=== PATIENT | male | born 1960 | race Caucasian/White ===

== ENCOUNTER 2018-06-25 08:59 | Outpatient (REF) | payer MEDICAID, SELFPAY ==
[2018-06-25 13:08] LABS: ALT 21 U/L (12-78); AST 15 U/L (15-37); Albumin 4.1 g/dL (3.4-5.0); Alkaline Phosphatase 62 U/L (46-116); Anion Gap 4.8 mmol/L (3-11); BUN 9 mg/dL (7-18); Bilirubin, Total 0.3 mg/dL (0.2-1.0); CO2 33.2 mmol/L (21.0-32.0); CREATININE 1.11 mg/dL (0.70-1.30); Calcium 9.7 mg/dL (8.5-10.1); Chloride 102 mmol/L (98-107); Cholesterol 193 mg/dL (50-200); Glucose 100 mg/dL (70-100); HDL Cholesterol 40 mg/dL (40-60); LDL CHOLESTEROL 128 mg/dL (<100); Potassium 4.7 mmol/L (3.5-5.1); Sodium 140 mmol/L (136-145); Total Protein 7.3 g/dL (6.4-8.2); Triglyceride 204 mg/dL (30-150)
[2018-06-25 13:14] LABS: Lithium 0.78 mmol/L (0.60-1.20)
== END 2018-06-25 09:19 ==
LOC: NCHCN 08:59
PROVIDERS: PCP Family Medicine; Visit Provider Family Medicine
DX: F31.9 Bipolar disorder, unspecified (principal); E78.5 Hyperlipidemia, unspecified; E11.9 Type 2 diabetes mellitus without complications; Z79.4 Long term (current) use of insulin; Z51.81 Encounter for therapeutic drug level monitoring; Z79.899 Other long term (current) drug therapy
CPT/HCPCS: 80053; 80061; 83721; 80178; 84443

== ENCOUNTER 2022-07-14 10:24 | Day surgery (SDC) | payer MEDICAID, SELFPAY | END 2022-07-14 10:25 | disposition home or self-care (01) | LOC: SUR 10:25 | PROVIDERS: PCP Family Medicine; Visit Provider Ophthalmology | DX: H25.11 Age-related nuclear cataract, right eye (principal); Z53.8 Procedure and treatment not carried out for other reasons ==

== ENCOUNTER 2022-10-31 10:48 | Day surgery (SDC) | payer MEDICAID, SELFPAY ==
[2022-10-31] VITALS (8 sets, daily range): BP systolic 89–136; BP diastolic 39–90; PULSE 64–89; RESP 11–22; TEMP 36.2–36.8; O2SAT 93–98; BMI 36.5
[2022-10-31] MEDS: Tropicam./Phenyleph. (1/2.5%) 5 ML BTL OD ×2 (11:48→11:55)
--- NOTE | 2022-10-31 11:55 | W.ANESPRE ---
General Info Date of Service Date Performed: 10/31/22 Height: 5 ft 8 in Weight: 108.9 kg Body Mass Index (BMI): 36.5 Surgical Procedure: Operation Date: 10/31/22 13:10 Proposed Procedure Side Surgeon p Cataract Extraction with IOL Implant Right Armond Grayson MD Meds Allergies and Home Medications Allergies Allergy/AdvReac Type Severity Reaction Status Date / Time No Known Allergies Allergy Unverified 10/30/22 11:27 Home Medication Medication Instructions Recorded aspirin 81 mg chewable tablet 81 mg PO DAILY 02/16/13 calcium cmb no.1-vit [id number]-B12 1 ea PO DAILY 02/16/13 120 mg-1,000 unit-10 mg tablet (Vitamin D3 (with calcium cit-phos)) clonazepam 0.5 mg tablet 1 mg PO TID 02/16/13 lithium carbonate 450 mg 450 mg PO HS 02/16/13 tablet,extended release olanzapine 20 mg tablet (Zyprexa) 20 mg PO HS 02/16/13 atorvastatin 40 mg tablet 40 mg PO DAILY 07/10/22 cetirizine 10 mg tablet (All Day 10 mg PO DAILY 07/10/22 Allergy (cetirizine)) cholecalciferol (vitamin D3) 25 25 mcg PO DAILY 07/10/22 mcg (1,000 unit) tablet (Vitamin D3) doxepin 25 mg capsule 25 mg PO HS 07/10/22 empagliflozin 10 mg tablet 10 mg PO DAILY 07/10/22 (Jardiance) folic acid 1 mg tablet 1 mg PO DAILY 07/10/22 lithium carbonate 150 mg capsule 150 mg PO HS 07/10/22 melatonin 3 mg tablet 3 mg PO HS PRN 07/10/22 metformin 500 mg tablet,extended 500 mg PO DAILY 07/10/22 release 24 hr mometasone 0.1 % topical cream 1 applic topical DIRECTED 07/10/22 nicotine 21 mg/24 hr daily 21 mg transdermal DIRECTED 07/10/22 transdermal patch propranolol 60 mg capsule,24 60 mg PO DAILY 07/10/22 hr,extended release trazodone 100 mg tablet 100 mg PO HS 07/10/22 hydroxyzine pamoate 50 mg capsule 50 mg PO HS 07/14/22 mometasone 0.1 % topical cream 1 applic topical BID 07/14/22 mupirocin 2 % topical ointment 1 applic topical BID PRN 07/14/22 olanzapine 20 mg tablet (Zyprexa) 20 mg PO HS 07/14/22 Current Visit Medications: Current Medications Generic Name Dose Route Start Last Admin Trade Name Luis Fernando PRN Reason Stop Dose Admin Acetaminophen 1,000 mg 10/31/22 06:00 Acetaminophen 500 Mg Tab PO 11/30/22 05:59 Q4H PRN PRN Balanced Salt Solution 500 ml 10/31/22 06:00 Balanced Salt Soln.-Plus 500 Ml Bag OP 11/30/22 05:59 DIRECTED [facility] Ringer's Solution 1,000 mls @ 80 mls/hr 10/31/22 06:00 IV 10/31/22 23:59 INFUSION [facility] IV Miscellaneous Supplies 1 each 10/31/22 06:00 Iv Access IV 10/31/22 23:59 DIRECTED [facility] Miscellaneous Medication 0 ml 10/31/22 06:00 Prednisolone 1%, Moxifloxacin 0.5%, Nepafenac 0.1% 5ml Btl OD 11/30/22 05:59 DIRECTED [facility] Miscellaneous Medication 0 ml 10/31/22 06:00 Tropicam./Phenyleph. (1/2.5%) 5 Ml Btl OD 11/30/22 05:59 DIRECTED [facility] Sodium Chloride 0 ml 10/31/22 06:00 Normal Saline Flush 10 Ml Syr IV 10/31/22 23:59 PRN PRN Sodium Chloride 0 ml 10/31/22 06:00 Normal Saline 10 Ml Vial IJ 10/31/22 23:59 DIRECTED PRN Sterile Water 0 ml 10/31/22 06:00 Water,Injection,Sterile 10 Ml Vial IJ 10/31/22 23:59 DIRECTED PRN Tetracaine HCl 0 ml 10/31/22 06:00 Tetracaine 0.5% 4 Ml Btl OD 11/30/22 05:59 DIRECTED [facility] PFS Active Problems Active Problems: Problem Status Onset Code Posterior subcapsular age-related cataract, right eye H25.041 Cortical cataract of right eye H26.9 Nuclear sclerotic cataract of right eye H25.11 Medical History Medical History Acute kidney injury Anxiety Bipolar disorder Cataract Cerebral ischemia Chronic cholecystitis CVA (cerebral vascular accident) Summer 2020 Depressive disorder Lightheadedness [place] use Microalbuminuria Persistent insomnia Pruritus of skin Right upper quadrant pain Smoker Type 2 diabetes mellitus Medical History Comments:: Per case provider he does not have rash Pt. is currently in boot (R) due to ankle surgery Surgical History Surgical History History of carotid endarterectomy [place] [facility] [place] Tobacco Smoking/Tobacco Use Status: Current every day Tobacco Type: cigarettes Alcohol Alcohol Intake: never Substance Use Substance use: Never Substance use type: does not use Vital Signs and Lab Results Vital Signs Most Recent Vital Signs in EMR: Most Recent Vital Signs Temp Pulse Resp BP Pulse Ox 36.8 C 88 16 136/83 95 10/31/22 11:15 10/31/22 11:15 10/31/22 11:15 10/31/22 11:15 10/31/22 11:15 Lab Results Blood Type / Crossmatch: No Data to Display Complete Blood Count: No Data to Display Complete Metabolic Panel: No Data to Display Liver Function Panel: No Data to Display Coagulation Panel: No Data to Display Cardiac Panel: No Data to Display Arterial Blood Gas: No Data to Display Venous Blood Gas: No Data to Display Pancreas Panel: No Data to Display Thyroid Panel: No Data to Display Infectious Disease: No Data to Display Blood Cultures: No Data to Display Toxicology Panel: No Data to Display Imaging and Studies Imaging and Studies Study information below may be from another EMR and interpreted by another provider. Please see original notes in EMR for more complete details. Other Study Summary:: 12/28/20 echo. EF 71% no hemodynamically significant valvular disease. 02/07/22. Carotid duplex. Right ICA<15%. Left 16-49% stenosis Right CEA 01/04/21 p right hemisphere stroke. Vascular surgery at [facility] [place]. NOTE 02/07/22. No changes. For follow up 1 year Anesthesia Assessment and Plan Anesthesia History Personal History: No History of Anesthesia Complications Family History: Family History Unknown Exercise Tolerance Exercise Tolerance: Metabolic Equivalents>4 Pertinent Negatives Pertinent Negatives: No Symptoms of GERD Cardiac & Pulmonary Exam Cardiac Exam: Normal S1/S2 Heart Sounds Pulmonary Exam: Clear Bilateral Breath Sounds Implantable Cardiac Device Does patient have a Pacemaker or an ICD?: No Airway Exam Known Difficult Airway: No Mallampati Class: 3 Mouth Opening: Normal (> 3cm) Thyromental Distance: Greater than 3 cm Neck Range of Motion: Full ROM Neck Circumference: Thick Teeth Condition: Edentulous ASA Classification ASA Score: ASA 3 Emergency Case?: No NPO Status NPO Status: NPO Clears >2 hours, Solids >8 hours Anesthesia Plan Resuscitation Status: Full Code Anesthesia Technique: General Anesthesia Airway Planned: LMA Monitors Used: Standard Monitors Preoperative Comments:: See all notes concerning cardiovascular. Stable. Surgeon [place] due to bipolar and cognitive issues and possible lengthy surgery would do best under GA. pt understands
[2022-10-31] MEDS: Lactated Ringers 1,000 ML 80 ML IV (12:03)
[2022-10-31] MEDS: Balanced Salt Soln.-PLUS 500 ML BAG OP (12:55)
[2022-10-31] MEDS: Tetracaine 0.5% 4 ML BTL OD (12:58)
[2022-10-31] MEDS: Lidocaine 1% Pres-Free 5 ML VIAL (12:59)
[2022-10-31] MEDS: Duovisc Viscoelastic System EACH 1 EACH (12:59)
[2022-10-31] MEDS: Povidone-Iodine Ophth 30 ML BTL (13:00)
[2022-10-31] MEDS: Trypan Blue 0.06% 0.5 ML SYR (13:00)
[2022-10-31] MEDS: Phenylephrine/Lidocaine (15/10) MG/ML 1 ML VIAL (13:00)
--- NOTE | 2022-10-31 13:19 | PDOC.DSDIS_ITS ---
Date of service: 10/31/22 Time of Service: 13:19 Discharge Plan Disposition Patient Disposition: Home Discharge Details Attending Provider: Armond Grayson Primary Care Provider: Reji Rahman [place] Meds and New Rx's Prescriptions: No Action clonazepam 0.5 MG tablet 1 mg PO TID lithium carbonate 450 MG tablet extended release 450 mg PO HS aspirin 81 MG tablet,chewable 81 mg PO DAILY olanzapine [Zyprexa] 20 MG tablet 20 mg PO HS Vitamin D3 (calcium cit-phos) 1 EACH tablet 1 ea PO DAILY atorvastatin 40 mg Tablet 40 mg PO DAILY cetirizine [All Day Allergy (cetirizine)] 10 mg Tablet 10 mg PO DAILY doxepin 25 mg Capsule 25 mg PO HS propranolol 60 mg Capsule,Extended Release 24 Hr 60 mg PO DAILY lithium carbonate 150 mg Capsule 150 mg PO HS melatonin 3 mg Tablet 3 mg PO HS PRN trazodone 100 mg Tablet 100 mg PO HS nicotine 21 mg/24 hr Patch 24 Hour 21 mg transdermal DIRECTED folic acid 1 mg Tablet 1 mg PO DAILY metformin 500 mg Tablet Extended Release 24 Hr 500 mg PO DAILY mometasone 0.1 % Cream 1 applic TOPICAL DIRECTED cholecalciferol (vitamin D3) [Vitamin D3] 25 mcg (1,000 unit) Tablet 25 mcg PO DAILY Jardiance 10 mg Tablet 10 mg PO DAILY hydroxyzine pamoate 50 mg Capsule 50 mg PO HS mupirocin 2 % Ointment 1 applic TOPICAL BID PRN olanzapine [Zyprexa] 20 mg tablet 20 mg PO HS Patient Comments: Take 1 tablet by mouth at bedtime mometasone 0.1 % Cream 1 applic TOPICAL BID Discharge Instructions Stand Alone Forms: Post-op Topical CataractJames (DSU) Discharge Orders Discharge Orders: Discharge Order (Routine); Ordered 10/31/22 Ordered By: Armond Grayson DS: Diagnosis Discharge Diagnosis (1) Posterior subcapsular age-related cataract, right eye: Status: Resolved (2) Cortical cataract of right eye: Status: Resolved (3) Nuclear sclerotic cataract of right eye: Status: Resolved
--- NOTE | 2022-10-31 13:20 | ROE_ITS ---
Date of service: 10/31/22 Time of Service: 13:20 Operative Note Operative Note DATE OF PROCEDURE: 10/31/22 PRE-OP DIAGNOSIS: Mature nuclear/cortical/posterior subcapsular cataract, right eye POST-OP DIAGNOSIS: same PROCEDURE: Cataract extraction using phacoemulsification with intraocular lens implant, right eye SURGEON: Armond Grayson ANESTHESIA TYPE: Local By Surgeon and General LMA/ETT Refer to Anesthesia Record ESTIMATED BLOOD LOSS: 0 PATHOLOGY: none sent COMPLICATIONS: None Patient was transported to: same day Patient's condition: stable Implants: Jimmy [employer] Jimmy Tecnis Eyhance DIB00 Indications: Progressive visual loss due to cataract, right eye Findings: Mature white cataract, right eye Procedure Description: CATARACT SURGERY OPERATIVE REPORT PREOPERATIVE DIAGNOSIS: 1. Mature nuclear/cortical/posterior subcapsular cataract, right eye POSTOPERATIVE DIAGNOSIS: Same OPERATION: 1. Cataract extraction using phacoemulsification with posterior chamber intraocular lens implant, right eye. IOL: IOL Electronic Engraver/Model: Jimmy [employer] Jimmy Tecnis Eyhance DIB00 IOL Power: + 19.5 diopters IOL Serial Number: [id number] Optic Diameter: 6.0mm Haptic/Overall Diameter: 13.0mm PHACO INFO: Mingo Zhongjia MROurion Vision System with OZil and Active Fluidics Cumulative Dispersed Energy (CDE): 18.62 seconds SURGEON: Armond Grayson MD, [place] ANESTHESIA: General/LMA, with local sub-tenon's anesthetic infiltration COMPLICATIONS: None SPECIMENS: None INDICATIONS FOR PROCEDURE: The patient is a 62-year-old gentleman who presented with complaints of diminished visual acuity in his right eye secondary to the development of a mature white cataract in the right eye. Visual acuity measured the light perception. The option of cataract surgery was offered to the patient and he wished to proceed. PROCEDURE: The correct surgical eye was identified and marked as the right eye and the pupil was dilated in the preoperative area using mydriatics and cycloplegics. The dilated pupil size was 5.0 mm. The patient was brought to the operating room where cardiopulmonary monitoring was instituted and surgical time-out was performed, confirming the correct operative eye and IOL power. General/laryngeal mask airway anesthesia was then administered. Topical anesthesia was administered and ophthalmic povidone-iodine 5% was instilled into the conjunctival fornices. The paul-ocular area was prepped with Betadine 10% solution and draped in the usual sterile fashion for intraocular surgery, including an aperture drape. A Tegaderm transparent film dressing was cut in half and used to cover the lashes and lid margins. Care was taken to sequester the lashes and lid margins under the Tegaderm dressing. A lid speculum was placed between the lids of the operative eye and the Mingo LuxOR Revalia operating microscope was maneuvered into position. Tomasa scissors were then used to make a conjunctival buttonhole approximately 6mm posterior to the limbus in the inferonasal quadrant. Blunt dissection was carried out to expose bare sclera, and a blunt-tipped sub-tenon?s anesthesia cannula was introduced and passed posteriorly along the globe where non-preserve d plain lidocaine was injected into posterior sub-Tenon?s space. A sideport knife was used to make a paracentesis port. VisionBlue was injected into the anterior chamber and allowed to sit for approximately 30 seconds. Intraocular phenylephrine/lidocaine was injected into the anterior chamber. The anterior chamber was filled with viscoelastic. A keratome knife was used to construct a 2-plane clear corneal tunnel extending 2.0mm into clear cornea. A 25-gauge needle on a 3 cc syringe was then used to aguiar the central anterior capsule and aspirate any liquefied cortical material under the anterior capsule. A flap was raised on the anterior capsule and capsulorhexis forceps were used to complete a continuous curvilinear capsulorhexis of 5.0 mm. Balanced salt solution was then used to perform cortical cleaving hydrodissection and nuclear hydrodelineation until the lens could be freely rotated within the capsular bag. The lens nucleus was then disassembled and removed within the capsular bag and iris plane using phacoemulsification. Residual cortical material was removed using the I/A handpiece. The posterior capsule was carefully polished to remove as much residual lens epithelial cells as safely possible. There was some residual posterior subcapsular opacity in the equatorial region that could not be safely removed. The capsular bag was then inflated and the anterior chamber deepened with cohesive viscoelastic. The lens implant described above was inserted into the capsular bag using the Jimmy and Rebecca Simplicity pre-loaded injector. A Kuglen hook was used to dial the IOL into position. Residual viscoelastic was then removed first from posterior to the IOL, then from the anterior chamber using the I/A handpiece. The lens implant was noted to center nicely within the capsular bag. The incisions were stromally hydrated, and the anterior chamber was reformed using BSS. Then 0.5cc of moxifloxacin 1.0mg/ml were injected into the capsular bag and anterior chamber. The incisions were checked with a Weck spear and found to be secure. Several drops of ophthalmic povidone-iodine 5% were then applied to the eye followed by two drops of Imprimis combination prednisolone/moxifloxacin/nepafenac solution. The drapes were removed and a clear plastic protective eye shield was placed over the eye. The patient was then returned to Same Day Surgery in stable condition.
--- NOTE | 2022-10-31 14:00 | W.ANESPOSTOP ---
Postoperative Evaluation Date, Time and Location Date Performed: 10/31/22 Time Performed: 14:00 Patient Location: Day Surgery Unit Vital Signs Most Recent Imported Vital Signs: Most Recent Vital Signs Temp Pulse Resp BP Pulse Ox 36.5 C 77 18 99/57 L 94 10/31/22 13:50 10/31/22 13:50 10/31/22 13:50 10/31/22 13:50 10/31/22 13:50 Assessment Mental Status: Awake (Alert & Oriented to Patient Baseline) Airway and Respiratory Function: Patent airway with normal (patient baseline) respiratory exam Cardiovascular Function: Hemodynamically Stable Hydration Status: Adequately Hydrated Nausea & Vomiting: No Nausea or Vomiting Pain: Pt. Denies Any Pain Peripheral Nerve Block: Patient did not receive a nerve block
== END 2022-10-31 14:40 | disposition home or self-care (01) ==
PROVIDERS: PCP Family Medicine; Visit Provider Ophthalmology
PROC: (CPT 66984; principal; 2022-10-31 13:00)
DX: H25.041 Posterior subcapsular polar age-related cataract, right eye (principal); H26.9 Unspecified cataract; H25.11 Age-related nuclear cataract, right eye; F17.210 Nicotine dependence, cigarettes, uncomplicated
CPT/HCPCS: 66984